=== PATIENT | male | born 1945 ===

== ENCOUNTER 2018-03-11 08:22 | Day surgery (SDC) | payer OTHER ==
[2018-03-11 09:01] VITALS: BMI 24.0
[2018-03-11] MEDS ORDERED: Lactated Ringer's 500 ML IV ONE (09:03)
[2018-03-11] MEDS ORDERED: Propofol 10 mg/ml Inj (20 ML) ONE (10:36)
[2018-03-11 11:23] VITALS: RESP 16; TEMP 96.8
[2018-03-11 11:49] VITALS: BP 104/80; PULSE 62; O2SAT 99
== END 2018-03-11 11:59 | disposition home or self-care (01) ==
LOC: H.ENDO 08:22
PROVIDERS: ATTEND Internal Medicine Gastroenterology
DX: Z12.11 Encounter for screening for malignant neoplasm of colon (principal); K64.8 Other hemorrhoids; K21.0 Gastro-esophageal reflux disease with esophagitis; K44.9 Diaphragmatic hernia without obstruction or gangrene; K31.89 Other diseases of stomach and duodenum; R10.13 Epigastric pain; R12 Heartburn
CPT/HCPCS: 43239; 45378; 88305; J2001; J2704; J7120